=== PATIENT | female | born 1970 | race Two or more races ===

== ENCOUNTER 2019-04-05 09:07 | Emergency (ER) | payer BC ==
[~2019-04-05] VITALS: Ht 157.5 cm; Wt 54.9 kg
[2019-04-05 09:20] VITALS: Ht 157.5 cm; Wt 54.9 kg
[2019-04-05 10:53] LABS: BASOPHIL % 0.2 % (0-2); PLATELET COUNT 185 x10^3mcL (130-400); RED CELL DISTRIBUTION WIDTH 13.4 % (11.5-14.5)
[2019-04-05 11:08] LABS: CALCIUM 8.7 mg/dL (8.5-10.1); CHLORIDE SERUM 109 mmol/L (98-107); CREATININE SERUM 0.5 mg/dL (0.6-1.0); GFR1 > 60 mL/min; GLUCOSE SERUM 111 mg/dL (74-106); POTASSIUM SERUM 3.5 mmol/L (3.5-5.1); SODIUM SERUM 146 mmol/L (136-145)
[2019-04-05 12:19] VITALS: BP 117/81
== END 2019-04-05 12:19 | disposition home or self-care (01) ==
LOC: ED 09:07
PROVIDERS: Emergency Medicine
DX: F43.20 Adjustment disorder, unspecified (principal); E78.00 Pure hypercholesterolemia, unspecified
CPT/HCPCS: 36415